=== PATIENT | female | born 1980 | race African-American/Black ===

== ENCOUNTER 2024-11-23 07:51 | Inpatient (IN) | payer OTHER ==
[~2024-11-23] VITALS: Ht 154.9 cm; Wt 68.0 kg
[2024-11-23 07:58] VITALS: O2SAT 99
[2024-11-23] MEDS: MORPHINE SULFATE 4 MG/ML INJ (FOR IV/IM USE) IV ONE (08:28)
[2024-11-23 08:36] LABS: BASOPHILS % 1.0 % (0.0-2.0); EOSINOPHILS % 2.4 % (0.0-5.0); HEMATOCRIT. 37.4 % (36.0-48.0); HEMOGLOBIN. 12.3 g/dL (12.0-16.0); LYMPHOCYTES % 19.4 % (20.0-50.0); MEAN PLATELET VOLUME 7.5 fl (7.4-10.4); MONOCYTES % 4.2 % (2.0-8.0); NEUTROPHILS % 73.0 % (40.0-76.0); PLATELET 326 x1000/uL (130-400); RED BLOOD CELL COUNT 4.29 mill/uL (4.2-5.4); RED CELL DISTRIBUTION WIDTH 14.9 % (11.6-14.6)
[2024-11-23 08:48] LABS: CREATININE 0.8 mg/dL (0.6-1.0); UREA NITROGEN BLOOD 8 mg/dL (9-23)
[2024-11-23 08:49] LABS: TROPONIN I HIGH SENSITIVITY 4 ng/L (3.0-34)
[2024-11-23 10:17] LABS: TROPONIN I HIGH SENSITIVITY < 4 ng/L (3.0-34)
[2024-11-23] MEDS: SODIUM CHLORIDE 0.9% 1,000 ML IV ONE (10:20)
[2024-11-23] MEDS: ONDANSETRON HCL 4MG/2ML INJ IV ONE (10:20)
[2024-11-23] MEDS ORDERED: ACETAMINOPHEN 325MG TABLET PO PRN (10:30)
[2024-11-23] MEDS ORDERED: DOCUSATE SODIUM 100MG CAPSULE PO PRN (10:30)
[2024-11-23] MEDS ORDERED: CLONIDINE 0.1MG TABLET PO PRN (10:30)
[2024-11-23] MEDS ORDERED: KETOROLAC 30MG/ML VIAL IV PRN (10:30)
[2024-11-23] MEDS ORDERED: IPRATROPIUM/ALBUTEROL 0.5-3(2.5)MG/3ML NEB HHN PRN (10:30)
[2024-11-23] MEDS ORDERED: GUAIFENESIN 200MG/10ML SUGAR FREE UDC PO PRN (10:30)
[2024-11-23] MEDS: PANTOPRAZOLE 40MG DR TABLET PO SCH (10:54)
[2024-11-23] MEDS: AMLODIPINE 5MG TABLET PO SCH (10:54)
[2024-11-23] MEDS: POTASSIUM CHLORIDE 20MEQ TABLET SR PO SCH (10:54)
[2024-11-23] MEDS: IBUPROFEN 600MG TABLET PO SCH (10:58)
[2024-11-23 11:54] VITALS: BP_SYST 121; BP_SYST 123; BP_DIAS 66; BP_DIAS 93; PULSE 77; RESP 16; TEMP 36.696
[2024-11-23 12:01] VITALS: BP 123/93; PULSE 77; RESP 16; TEMP 36.7; O2SAT 99
[2024-11-23] MEDS: ONDANSETRON HCL 4MG/2ML INJ IV PRN (12:06)
[2024-11-23] MEDS ORDERED: AMLO5TAB88 MT (12:11)
[2024-11-23 13:30] VITALS: BP 119/85
[2024-11-23 14:46] LABS: CLARITY URINE CLEAR (CLEAR); COLOR URINE RED (YELLOW); GLUCOSE URINE NEGATIVE (NEGATIVE); KETONES URINE NEGATIVE (NEGATIVE); LEUKOCYTE ESTERASE URINE TRACE (NEGATIVE); NITRITE URINE NEGATIVE (NEGATIVE); OCCULT BLOOD URINE 3+ (NEGATIVE); PH URINE 8.0 (4.5-8.0); PROTEIN URINE TRACE (NEGATIVE); SPECIFIC GRAVITY URINE 1.005 (1.005-1.030); UROBILINOGEN URINE 0.2 E.U./dL (0.2-1.0)
[2024-11-23 15:07] LABS: RBC URINE TNTC /hpf (0-2); WBC URINE 0-2 /hpf (0-2)
[2024-11-23 15:08] LABS: SQUAMOUS EPITHELIAL CELL URINE NONE SEEN /lpf (RARE/1+)
[2024-11-23 15:09] LABS: *AMPHETAMINES SCREEN URINE NEGATIVE (NEGATIVE); *BARBITURATES SCREEN URINE NEGATIVE (NEGATIVE); *BENZODIAZEPINES SCREEN URINE NEGATIVE (NEGATIVE); *COCAINE SCREEN URINE NEGATIVE (NEGATIVE); METHADONE URINE SCREEN NEGATIVE (NEGATIVE)
[2024-11-23 15:10] LABS: CANNABINOID URINE SCREEN NEGATIVE (NEGATIVE); ECSTASY MDMA SCREEN URINE NEGATIVE (NEGATIVE); OPIATES URINE SCREEN PRESUMPTIVE POSITIVE (NEGATIVE); PHENCYCLIDINE URINE SCREEN NEGATIVE (NEGATIVE)
[2024-11-23 15:24] LABS: BACTERIA URINE NONE SEEN
[2024-11-23 15:57] LABS: TRIGLYCERIDE 62 mg/dL (0-150)
[2024-11-23 15:58] LABS: LDL CHOLESTEROL 154 mg/dL (5-100)
[2024-11-23 15:59] LABS: PHOSPHORUS 2.9 mg/dL (2.5-4.9)
[2024-11-23 16:00] VITALS: BP 119/76; PULSE 66; RESP 18; TEMP 36.6; O2SAT 100
[2024-11-23 20:00] VITALS: BP 113/68; PULSE 69; RESP 18; TEMP 35.9; O2SAT 99
[2024-11-24] VITALS: BP 122/75; PULSE 76; RESP 16; TEMP 36.7; O2SAT 98
[2024-11-24 02:00] LABS: TROPONIN I HIGH SENSITIVITY < 4 ng/L (3.0-34)
[2024-11-24 04:00] VITALS: BP 110/70; PULSE 67; RESP 20; TEMP 36.3; O2SAT 99
[2024-11-24 08:00] VITALS: BP 122/60; PULSE 70; RESP 18; TEMP 36.5; O2SAT 98
[2024-11-24 08:13] LABS: BASOPHILS % 0.6 % (0.0-2.0); EOSINOPHILS % 1.9 % (0.0-5.0); HEMATOCRIT. 36.5 % (36.0-48.0); HEMOGLOBIN. 12.2 g/dL (12.0-16.0); LYMPHOCYTES % 12.8 % (20.0-50.0); MEAN PLATELET VOLUME 7.8 fl (7.4-10.4); MONOCYTES % 4.3 % (2.0-8.0); NEUTROPHILS % 80.4 % (40.0-76.0); PLATELET 303 x1000/uL (130-400); RED BLOOD CELL COUNT 4.19 mill/uL (4.2-5.4); RED CELL DISTRIBUTION WIDTH 15.1 % (11.6-14.6)
[2024-11-24 08:27] LABS: CREATININE 0.9 mg/dL (0.6-1.0); TROPONIN I HIGH SENSITIVITY < 4 ng/L (3.0-34)
[2024-11-24 08:28] LABS: UREA NITROGEN BLOOD 6 mg/dL (9-23)
[2024-11-24 08:40] LABS: T4 FREE 1.30 ng/dL (0.89-1.76)
[2024-11-24 09:39] LABS: ASPARTATE AMINOTRANSFERASE 14 IU/L (<34); BILIRUBIN DIRECT < 0.1 mg/dL (<=3.0); BILIRUBIN TOTAL 0.4 mg/dL (0.1-1.0); PROTEIN TOTAL 6.7 g/dL (6.0-8.3)
[2024-11-24 12:00] VITALS: PULSE 73; RESP 18
[2024-11-24 16:00] VITALS: BP 118/69; PULSE 72; RESP 18; TEMP 36.6; O2SAT 99
[2024-11-24 20:00] VITALS: BP 100/66; PULSE 72; RESP 17; TEMP 36.8; O2SAT 97
[2024-11-25] VITALS: BP 122/77; PULSE 96; RESP 17; TEMP 36.5; O2SAT 98
[2024-11-25 04:00] VITALS: BP 107/62; PULSE 69; RESP 17; TEMP 36.6; O2SAT 97
[2024-11-25] MEDS: ACETAMINOPHEN 325MG TABLET PO PRN (06:46)
[2024-11-25 08:00] VITALS: BP 119/63; PULSE 69; RESP 18; TEMP 36.5; O2SAT 99
[2024-11-25] MEDS ORDERED: ATOR40TA70 MT ×3 (09:51→10:05)
[2024-11-25 12:14] VITALS: BP 123/70; PULSE 85; RESP 20; TEMP 97.6
== END 2024-11-25 14:00 | disposition home or self-care (01) | DRG 313 ==
LOC: ER 07:51 → EDBEDREQTM 09:43 → 8WST 09:43 → EDBEDREQ 09:43 → ENRESERV 11:12
PROVIDERS: ADMIT Internal Medicine; ATTEND Internal Medicine
DX: R07.89 Other chest pain (principal); I10 Essential (primary) hypertension; E78.00 Pure hypercholesterolemia, unspecified; E87.6 Hypokalemia; Z79.899 Other long term (current) drug therapy
CPT/HCPCS: 36415; 71045; 73030; 80048; 80061; 80076; 80305; 81003; 82040; 83036; 83735; 84100; 84439; 84443; 84484; 85025; 93005; 97162; 97165; 99285; A4606; J2270; J2405; J7030